=== PATIENT | male | born 1965 | race Caucasian/White ===

== ENCOUNTER 2018-08-25 08:58 | Emergency (ER) | payer BC ==
[2018-08-25 09:21] VITALS: BP 126/79
--- NOTE | 2018-08-25 09:44 | UC ---
General HPI - HPI Summary HPI Summary: Patient here with his . Was off all last week, at festivals, walking and carrying heavy items and very active and felt well. Past two-2 weeks, has had cough and chest congestion. Using albuterol more and started mucinex - seemed to help somewhat. Thought it was related to seasonal allergies. 3 days ago, patient began having diaphoretic episodes with left sided chest tightness and shortness of breath. is coughing productive. Has hx of rib issues and thought it is related to this. He is also having exertional SOB and lightheadedness when he takes the stairs. Another concern is he is having diffuse itching all over - back, extremities. No rash or skin changes. No one else with itching. States he had a similar issue in May and had a exercise stress test - only able to do it for 9 minutes but no issues seen. Had an echo as well. 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 Blood glucose this am during his diaphoretic period was 213, which is high for him. Is not on a baby ASA. States his heart rate has been elevated. 2 days ago he measured it at 130 's. Meds; Reviewed Family hx: unremarkable - History of Current Complaint Chief Complaint: UCGeneralIllness Stated Complaint: SWEATS SHORTNESS OF BREATH SKIN Time Seen by Provider: 08/25/18 09:13 Pain Intensity: 0 - Allergy/Home Medications Allergies/Adverse Reactions: Allergies Allergy/AdvReac Type Severity Reaction Status Date / Time No Known Allergies Allergy Verified 08/25/18 09:15 Home Medications: Home Medications Albuterol HFA INHALER* [Ventolin HFA Inhaler*] 1 - 2 puff INH Q4H PRN 08/25/18 [ History Confirmed 08/25/18] Dulaglutide (NF) [Trulicity (NF)] 1.5 mg SUBCUT MO 08/25/18 [History Confirmed 08/25/18] Fluticasone NASAL SPRAY 50MCG* [Flonase NASAL SPRAY 50MCG*] 2 spray BOTH NARES DAILY 08/25/18 [History Confirmed 08/25/18] Ibuprofen TAB* [Advil TAB*] 200 - 400 mg PO Q6H PRN 08/25/18 [History Confirmed 08/25/18] LoraTADine TAB(NF) [Claritin 10 MG TAB(NF)] 10 mg PO DAILY 08/25/18 [History Confirmed 08/25/18] Mometasone/Formoter 100/5 MDI* [Dulera 100/5 MDI*] 2 puff INH DAILY 08/25/18 [ History Confirmed 08/25/18] Omeprazole (Nf) [Prilosec (NF)] 40 mg PO DAILY 08/25/18 [History Confirmed 08/25] Pseudoephedrine HCL ER TAB* [Sudafed 12 Hour*] 120 mg PO BID PRN 08/25/18 [ History Confirmed 08/25/18] glipiZIDE TAB* [Glucotrol TAB*] 10 mg PO BID 08/25/18 [History Confirmed ] metFORMIN* [Glucophage 1000 MG TAB *] 1,000 mg PO BID 08/25/18 [History Confirmed 08/25/18] PMH/Surg Hx/FS Hx/Imm Hx Previously Healthy: Yes Endocrine History: Diabetes Respiratory History: Asthma - Surgical History Surgical History: Yes Surgery Procedure, Year, and Place: Bilateral Quadriceps Tendon Repair, 2000, [place] - Family History Known Family History: Positive: Diabetes - Social History Alcohol Use: Occasionally Substance Use Type: None Smoking Status (MU): Never Smoked Tobacco - Immunization History Most Recent Influenza Vaccination: 12/2016 Review of Systems All Other Systems Reviewed And Are Negative: Yes Respiratory: Positive: Shortness Of Breath, Cough Cardiovascular: Positive: Chest Pain Gastrointestinal: Positive: Nausea Physical Exam Triage Information Reviewed: Yes Appearance: Well-Appearing Vital Signs: Initial Vital Signs Temp 97.6 F 08/25/18 09:08 Pulse 108 08/25/18 09:08 Resp 16 08/25/18 09:08 BP 126/79 08/25/18 09:08 Pulse Ox 99 08/25/18 09:08 ENT: Positive: Normal ENT inspection Neck: Positive: Supple, Nontender Respiratory: Positive: Decreased breath sounds Cardiovascular: Positive: Tachycardia Abdomen Description: Positive: Nontender Musculoskeletal Exam: Other - no lower ext swelling Skin Exam: Other - no rash Course/Dx - Course Course Of Treatment: This is a 52 yr old with PMHx of asthma and DM who presents with episodes of diaphoresis, SOB, left sided chest tightness and puritis Assessment Discussed at length my concern for heart attack, tachycardia induced myopathy, less likely a pulmonary embolism Patient unwilling to get an EKG here in urgent care because he doesn't want to have his chest shaved. He just went through all this and does not feel this is related to his heart despite my concerns and discussing his symptoms and his history I initially recommended going to the ER for acute coronary syndrome evaluation - with risks of and heart attack are my main concern. Patient does not want to go because he already went through all this in May and feels that it was an major inconvenience and he doesn't want to go through it all again as he feels it is not his heart. Discussed he could have an irregular rapid rhythm or that he could have a tachycardia induced myopathy. He is insistent this is not his heart. He is concerned about itching. Unclear the etiology behind the itching. No rash. Could be psychosomatic related to his current illness. is present and AMA paperwork filled out with RN present as well Patient changed mind and decided to go to the ER via private car. Declined ambulance ride. ASA 324 mg given Sign out given to [facility] - Mary Combs NP - Diagnoses Provider Diagnosis: Chest pain Discharge - Sign-Out/Discharge Documenting (check all that apply): Patient Departure All imaging exams completed and their final reports reviewed: No Studies - Discharge Plan Condition: Fair Disposition: HOME-RECOMMEND TO ED Referrals: Jeannie Sims MD [Primary Care Provider] - Additional Instructions: Discussed going directly to the Emergency Room via private car to be elevated for your symptoms and your tachycardia You need to be evaluated for acute coronary syndrome and a possibly arrhythmia - Billing Disposition and Condition Condition: FAIR Disposition: Home-Recommend to ED
[2018-08-25] MEDS ORDERED: Aspirin TAB* 325 MG PO ONE (10:05)
[2018-08-25] MEDS ORDERED: Aspirin 81 mg CHEW TAB* 81 MG TAB.CHEW PO ONE (10:07)
== END 2018-08-25 10:14 | disposition home health service (06) ==
LOC: UCCORT 08:58
DX: R07.9 Chest pain, unspecified (principal); E11.9 Type 2 diabetes mellitus without complications; Z79.84 Long term (current) use of oral hypoglycemic drugs; J45.909 Unspecified asthma, uncomplicated
CPT/HCPCS: 99212; A9270-GY; G0463